=== PATIENT | male | born 1955 | race Caucasian/White ===

== ENCOUNTER → 2017-05-11 | Outpatient (CLI) | payer BC | END | disposition home or self-care (01) | LOC: CDC 14:33 | DX: L72.3 Sebaceous cyst (principal) | CPT/HCPCS: 93000 ==

== ENCOUNTER 2017-06-05 08:46 | Day surgery (SDC) | payer BC ==
[~2017-06-05] VITALS: Ht 198.1 cm; Wt 99.8 kg
[~2017-06-05 08:46] MED LIST: ALEVE220 MG PO; NIACOR500 MG PO; PAXIL10 MG PO; VITAMIN B-1250 MC3 PO
[2017-06-05] MEDS ORDERED: VITAMIN D31000 UNIT PO (09:22)
[2017-06-05] MEDS ORDERED: GRAPE SEED50 MG PO (09:24)
[2017-06-05] MEDS ORDERED: GLUCOSAMINE &1 EAC1 PO (09:25)
[2017-06-05 09:32] VITALS: BP 138/71
[2017-06-05 13:05] VITALS: BP 151/72
[2017-06-05 14:00] VITALS: BP 130/77
== END 2017-06-05 14:10 | disposition home or self-care (01) ==
LOC: SDC 08:46
PROC: 0HB4XZZ Excision of Neck Skin, External Approach (ICD-10-PCS; principal; 2017-06-05)
DX: L72.0 Epidermal cyst (principal); F32.9 Major depressive disorder, single episode, unspecified; F17.210 Nicotine dependence, cigarettes, uncomplicated; Z88.0 Allergy status to penicillin
CPT/HCPCS: 88304; J0690; J1100; J2250; J2405; J3010; S0020